=== PATIENT | female | born 2000 | race Caucasian/White ===

== ENCOUNTER 2024-07-07 07:36 | Emergency (ER) | payer SELFPAY ==
[~2024-07-07] VITALS: Ht 167.6 cm; Wt 55.0 kg
[2024-07-07 07:44] VITALS: O2SAT 99
[2024-07-07 08:25] LABS: BASOPHILS % 0.5 % (0.0-2.0); HEMATOCRIT. 39.3 % (36.0-48.0); HEMOGLOBIN. 13.2 g/dL (12.0-16.0); LYMPHOCYTES % 9.9 % (20.0-50.0); MEAN CORPUSCULAR HEMOGLOBIN 30.3 pg (28.0-32.0); MEAN CORPUSCULAR HGB CONC 33.7 g/dL (31.0-37.0); MEAN PLATELET VOLUME 6.9 fl (7.4-10.4); MONOCYTES % 3.9 % (2.0-8.0); NEUTROPHILS % 85.7 % (40.0-76.0); PLATELET 366 x1000/uL (130-400); RED BLOOD CELL COUNT 4.36 mill/uL (4.2-5.4); RED CELL DISTRIBUTION WIDTH 14.5 % (11.6-14.6); WHITE BLOOD COUNT 9.5 x1000/uL (4.5-11.0)
[2024-07-07 08:33] LABS: CARBON DIOXIDE 23 mEq/L (21-32); CHLORIDE 110 mEq/L (98-107); POTASSIUM 3.8 mEq/L (3.5-5.1); SODIUM 144 mEq/L (136-145)
[2024-07-07 08:34] LABS: CALCIUM 9.2 mg/dL (8.7-10.4)
[2024-07-07 08:39] LABS: CREATININE 0.9 mg/dL (0.6-1.0); GLUCOSE 121 mg/dL (70-105); TROPONIN I HIGH SENSITIVITY 17 ng/L (3.0-34); UREA NITROGEN BLOOD 8 mg/dL (9-23)
[2024-07-07 08:40] LABS: ALANINE AMINOTRANSFERASE 20 IU/L (10-49); ASPARTATE AMINOTRANSFERASE 22 IU/L (<34)
[2024-07-07 08:41] LABS: ALBUMIN 4.5 g/dL (3.2-4.8); BILIRUBIN TOTAL 0.3 mg/dL (0.1-1.0); PROTEIN TOTAL 7.5 g/dL (6.0-8.3)
[2024-07-07] MEDS: ACETAMINOPHEN 500MG TABLET PO ONE (08:45)
[2024-07-07 08:47] LABS: BILIRUBIN DIRECT < 0.1 mg/dL (<=3.0)
[2024-07-07 08:54] LABS: HCG SCREEN NEGATIVE
[2024-07-07] MEDS ORDERED: IBUP-2029 MT (09:37)
[2024-07-07] MEDS: SODIUM CHLORIDE 0.9% 1,000 ML IV ONE (10:04)
[2024-07-07 11:23] VITALS: BP 119/59; PULSE 100; RESP 15; TEMP 36.89184; O2SAT 99
== END 2024-07-07 11:35 | disposition home or self-care (01) ==
LOC: ER 07:48
DX: R00.2 Palpitations (principal); R51.9 Headache, unspecified; Y08.89XA Assault by other specified means, initial encounter; Y93.89 Activity, other specified; Y92.89 Other specified places as the place of occurrence of the external cause; Y99.8 Other external cause status
CPT/HCPCS: 80076; 80048; 81025; 84703; 85025; 84484; 36415; 70450; 96360; 99285; J7030; Z7610 ×3